=== PATIENT | male | born 1990 ===

== ENCOUNTER → 2021-09-07 16:44 | Outpatient (CLI) | payer BC, SELFPAY ==
--- NOTE | ~2021-09-07 | MR_ITS ---
EXAMINATION: MR knee LT wo con DATE: 09/07/2021 17:42 INDICATION: Left knee pain. TECHNIQUE: Magnetic resonance imaging (MRI) of the left knee was performed without intravenous contra st. Sequences included axial PD-weighted FS FSE, coronal PD-weighted FSE and PD-weighted FS FSE, sagi ttal PD-weighted FSE, and sagittal T2-weighted FS FSE. COMPARISON: None. FINDINGS: Medial compartment: Medial meniscus is normal. Medial compartment cartilage is normal. Lateral compartment: There is a convex tear of posterior horn of lateral meniscus. Lateral compartment cartilage is normal . Patellofemoral compartment: Patellar cartilage is normal. Trochlear cartilage is normal. Ligaments and tendons: There is a complete tear of anterior cruciate ligament. There is a partial tear of posterior cruciate ligament characterized by thickening and increased signal intensity. There is a partial tear of medi al collateral ligament involving the anterior fibers. The lateral collateral ligament complex is norm al. Fluid: There is a large knee joint effusion. Areas of low signal in the effusion are likely hemorrhage. Ther e is a small Iglesias's cyst. There is subcutaneous edema about the knee. Osseous/other: There is edema-like marrow signal intensity in proximal tibia, lateral distal aspect of lateral femor al condyle, and medial distal aspect of medial femoral condyle, consistent with stress reaction. IMPRESSION: 1. Complete tear of anterior cruciate ligament. 2. Partial tear of posterior cruciate ligament. 3. Tear of lateral meniscus. 4. Partial tear of medial collateral ligament. 5. Large hemarthrosis. 6. Small Iglesias's cyst. Reviewed, dictated and finalized at location A. C [facility]
== END ==
DX: S83.512A Sprain of anterior cruciate ligament of left knee, initial encounter (principal); S83.522A Sprain of posterior cruciate ligament of left knee, initial encounter; S83.282A Other tear of lateral meniscus, current injury, left knee, initial encounter; S83.412A Sprain of medial collateral ligament of left knee, initial encounter; M71.22 Synovial cyst of popliteal space [Baker], left knee
CPT/HCPCS: 73721